=== PATIENT | male | born 1990 | race Caucasian/White ===

== ENCOUNTER 2024-09-03 22:00 | Emergency (ER) | payer MEDICAID, OTHER ==
[~2024-09-03] VITALS: Ht 180.3 cm; Wt 99.8 kg
[2024-09-04 07:17] VITALS: BP 160/90; TEMP 97.6; O2SAT 96
== END 2024-09-03 22:55 | disposition left against medical advice (07) ==
LOC: ER 22:10
DX: T40.411A Poisoning by fentanyl or fentanyl analogs, accidental (unintentional), initial encounter (principal); F15.10 Other stimulant abuse, uncomplicated; F17.210 Nicotine dependence, cigarettes, uncomplicated; Z88.7 Allergy status to serum and vaccine; Z90.49 Acquired absence of other specified parts of digestive tract; Y92.89 Other specified places as the place of occurrence of the external cause
CPT/HCPCS: A4606; A4663